=== PATIENT | male | born 1975 | race Hispanic/Latino ===

== ENCOUNTER 2019-05-28 13:46 | Emergency (ER) | payer BC, SELFPAY ==
[2019-05-28] MEDS ORDERED: Ketorolac Tromethamine 60 MG/2 ML VIAL ONE (14:44)
--- NOTE | 2019-05-28 14:49 | RAD ---
3 VIEWS LUMBAR SPINE: Date: 05/28/2019 COMPARISON: None. HISTORY: Low back pain. FINDINGS: Lateral examination demonstrates normal lumbar vertebral body height and alignment. Five lumbar-type vertebral bodies are present with intact pedicles on frontal imaging. No acute osseous abnormality is noted. IMPRESSION: No acute osseous abnormality. POS: [id number]
== END 2019-05-28 15:05 | disposition home or self-care (01) ==
LOC: NAV ERS 13:46
DX: M54.5 Low back pain (principal); F17.210 Nicotine dependence, cigarettes, uncomplicated
CPT/HCPCS: 72100; 96372; J1885